=== PATIENT | female | born 1930 | race Caucasian/White ===

== ENCOUNTER 2019-11-01 17:18 | Emergency (ER) | payer MEDICARE ==
[~2019-11-01] VITALS: Ht 167.6 cm; Wt 72.6 kg
[2019-11-01 17:55] LABS: BASOPHILS % (AUTO) 0.6 % (0.0-2.0); EOSINOPHILS # (AUTO) 0.1 K/uL (0.0-0.7); EOSINOPHILS % (AUTO) 1.5 % (0.0-7.0); HEMATOCRIT 47.4 % (31.2-41.9); HEMOGLOBIN 15.7 g/dL (10.9-14.3); LYMPHOCYTES % (AUTO) 11.9 % (20.5-51.5); MEAN CORPUSCULAR HEMOGLOBIN 29.6 uug (24.7-32.8); MEAN CORPUSCULAR HGB CONC 33 g/dL (32.3-35.6); MEAN CORPUSCULAR VOLUME 89.4 fL (75.5-95.3); MONOCYTES # (AUTO) 0.6 K/uL (2.0-10.0); MONOCYTES % (AUTO) 7.6 % (0.0-11.0); NEUTROPHILS # (AUTO) 6.4 K/uL (1.8-8.9); NEUTROPHILS % (AUTO) 78.4 % (38.5-71.5); PLATELET COUNT (AUTO) 289 K/uL (179-408); RED BLOOD CELL COUNT(AUTO) 5.31 MIL/uL (3.63-4.92); WHITE BLOOD COUNT (AUTO) 8.2 K/uL (3.8-11.8)
--- NOTE | 2019-11-01 17:58 | NUR ---
PT IS INROO #2B. DR DEVINE EVALUATED THE PT.
--- NOTE | 2019-11-01 17:59 | NUR ---
PT IS UNDER DIRECT OBSERVATION OF GHISLAINE SORTO. NO S/S OF ACUTE DISTRESS AT THIS TIME. CONTINUE TO MONITOR THE PT.
[2019-11-01 18:04] LABS: CARBON DIOXIDE 22 mmol/L (21-32); CHLORIDE 106 mmol/L (98-107); CREATININE 1.1 mg/dL (0.6-1.3); GLUCOSE 109 mg/dL (74-106); POTASSIUM 3.9 mmol/L (3.5-5.1); UREA NITROGEN, BLOOD 18 mg/dL (7-18)
[2019-11-01 18:10] LABS: ALANINE AMINOTRANSFERASE 27 U/L (14-59); ALKALINE PHOSPHATASE 62 U/L (50-136); ASPARTATE AMINOTRANSFERASE 26 U/L (15-37); BILIRUBIN,DIRECT 0.4 mg/dL (0.0-0.2); BILIRUBIN,TOTAL 1.3 mg/dL (0.2-1.0); TOTAL PROTEIN, SERUM 7.9 g/dL (6.4-8.2)
[2019-11-01 18:11] LABS: ACETAMINOPHEN < 2.0 ug/mL (10-30)
[2019-11-01 18:15] LABS: ETHANOL < 3 MG/DL (0-0)
--- NOTE | 2019-11-01 18:20 | NUR ---
NOAH STARK WAS CALLED TO EVALUATED THE PT. ELVIE IS 1 HR.
[2019-11-01 18:32] LABS: *BILIRUBIN,URIN 1+ (NEGATIVE); *BLOOD, URINE 3+ (NEGATIVE); *CLARITY,URINE SLIGHTLY CLOUDY (CLEAR); *COLOR,URINE DARK YELLOW (YELLOW); *KETONES,URINE NEGATIVE (NEGATIVE); *UROBILINOGEN,URINE 0.2 E.U./dl (NORMAL); LEUKOCYTE ESTERASE ,URINE NEGATIVE (NEGATIVE); NITRITE, URINE NEGATIVE (NEGATIVE); PH,URINE 5.5 (5.0-8.0); UGLUCOSE NEGATIVE (NEGATIVE)
[2019-11-01 18:39] LABS: BACTERIA,URINE FEW /HPF (NONE SEEN); CALCIUM OXALATE CRYSTALS,UR MANY /HPF (NONE SEEN); MUCUS,URINE MANY /LPF (0-FEW); RBC,URINE 20-50 /HPF (0-3); SQUAMOUS EPITHELIAL CELL,UR MODERATE /HPF (NONE SEEN)
[2019-11-01 18:44] LABS: *AMPHETAMINE, URINE NEGATIVE (NEGATIVE); *BARBITURATE, URINE NEGATIVE (NEGATIVE); *CANNABINOID, URINE NEGATIVE (NEGATIVE); *COCCAINE, URINE NEGATIVE (NEGATIVE); *OPIATE, URINE NEGATIVE (NEGATIVE); *PHENCYCLIDINE SCREEN,URINE NEGATIVE (NEGATIVE)
--- NOTE | 2019-11-01 19:00 | NUR ---
REPORT GIVEN TO PULP REFINER OPERATOR RN ALDEN.
--- NOTE | 2019-11-01 19:13 | NUR ---
RECEIVED SHIFT REPORT FROM GHISLAINE SORTO. PT IS IN CALM AND COOPERATIVE IN HER ROOM.
--- NOTE | 2019-11-01 19:39 | NUR ---
PT IS A/OX2, WHICH IS PT'S BASELINE MENTATION. PT IS CALM AND COOPERATIVE, DENIES SI/HI. CRISIS REPAIRER CONTROLLER TESTER, NOAH STARK, AT BEDSIDE FOR PT ASSESSMENT. PT WAS D/C FROM [facility] TODAY AND WAS TRANSFERRED TO THIS ED VIA MEDICAL TRANSPORTATION DESPITE PT'S DENIAL OF SI/HI. PT IS MEDICALLY AND PSYCHIATRIALLY CLEARED AT THIS TIME, AWAITING ARRIVAL OF ART, WHO IS PT'S HOME CAREGIVER. VSS. NO MEDICAL COMPLAINTS AT THIS TIME.
[2019-11-01 19:47] VITALS: BP 145/83
--- NOTE | 2019-11-01 19:48 | NUR ---
ART, PT'S CAREGIVER, AT BEDSIDE. PT WILL BE DRIVEN HOME BY ART IN PRIVATE VEHICLE.
--- NOTE | 2019-11-01 19:48 | NUR ---
Patient discharged to home in stable conditon. Written and verbal after care instructions given. Patient verbalizes understanding of instructions. ALL BELONGINGS W/ PT. PT SELF-AMBULATED W/O DIFFICULTY.
== END 2019-11-01 19:49 | disposition home or self-care (01) ==
LOC: ER 17:20
DX: F29 Unspecified psychosis not due to a substance or known physiological condition (principal); R45.1 Restlessness and agitation; I48.20 Chronic atrial fibrillation, unspecified; J44.9 Chronic obstructive pulmonary disease, unspecified; F32.9 Major depressive disorder, single episode, unspecified; E78.5 Hyperlipidemia, unspecified; Z79.899 Other long term (current) drug therapy
CPT/HCPCS: 36415; 70450; 71045; 80048; 80076; 80307; 81000; 81001; 84443; 85025; 87086; 93005; 99285; G0480 ×2; G0481; A4663